=== PATIENT | female | born 1940 | race Caucasian/White ===

== ENCOUNTER 2016-04-30 11:50 | Emergency (ER) | payer OTHER ==
[~2016-04-30] VITALS: Ht 165.1 cm; Wt 70.5 kg
[~2016-04-30 11:50] MED LIST: AMLO5TAB96 PO; ECOT325T PO; SOTA80TA PO
[2016-04-30 11:52] VITALS: BP 143/66; PULSE 50; RESP 14; TEMP 97.9; O2SAT 97
[2016-04-30] MEDS ORDERED: PRAD150C PO (12:06)
[2016-04-30] MEDS ORDERED: COZA25TA PO (12:06)
[2016-04-30] MEDS ORDERED: SOTA80TA PO (12:06)
--- NOTE | 2016-04-30 12:17 | PD ---
HPI Chief Complaint: Musculoskeletal Complaint Time Seen by Provider: 12:13 Travel History International Travel<30 days: Yes Contact w/Intl Traveler<30days: Yes Name of Country Traveled to: [place] Traveled to known affect area: No History of Present Illness HPI 75-year-old female presents to the emergency department for evaluation after a trip and fall that occurred yesterday afternoon. She states her was an uneven sidewalk and she tripped and fell. She states she did hit her head, but denies loss of consciousness. She denies any headache or visual changes. No neck pain or back pain. No chest pain or abdominal pain. No vomiting. She denies any hip or pelvic pain. Patient's complaining of left ankle mild left knee pain and right knee pain. Patient with history of atrial fibrillation and TIA. She is currently on sotalol, Pradaxa, Cozaar. Patient states she has been ambulatory, but with pain. She states the pain is relieved with lying down. PFSH Past Medical History Hx Anticoagulant Therapy: Yes Cardiovascular Problems: Yes Cerebrovascular Accident: Yes Hypertension: Yes Social History Alcohol Use: No Tobacco Use: No Substance Use: No Allergies-Medications (Allergen,Severity, Reaction): Coded Allergies: No Known Allergies (Verified , 11/15/10) Reported Meds & Prescriptions Reported Meds & Active Scripts Active Reported Sotalol (Sotalol HCl) 80 Mg Tab 0.5 Tab PO BID Cozaar (Losartan Potassium) 25 Mg Tab Unknown Dose PO DAILY Pradaxa (Dabigatran) 150 Mg Cap 150 Mg PO BID Review of Systems Except as stated in HPI: all other systems reviewed are Neg Physical Exam Narrative GENERAL: Well-developed well-nourished elderly female patient, afebrile. SKIN: Warm and dry. Patient has swelling with hematoma noted over right anterior knee. She also has ecchymosis and swelling over left lateral ankle. Small ecchymosis noted to left anterior knee. HEAD: Normocephalic. Atraumatic. EYES: No scleral icterus. No injection or drainage. NECK: Supple, trachea midline. No JVD or lymphadenopathy. CARDIOVASCULAR: Regular rate and rhythm without murmurs, gallops, or rubs. Bilateral pedal pulses 2+. RESPIRATORY: Breath sounds equal bilaterally. No accessory muscle use. Lungs sounds are clear to auscultation. GASTROINTESTINAL: Abdomen soft, non-tender, nondistended. MUSCULOSKELETAL: No cyanosis. Patient has tenderness over left lateral ankle. Patient has mild tenderness over left lateral knee. Patient has tenderness over right anterior knee. BACK: Nontender without obvious deformity. No CVA tenderness. Data Data Last Documented VS Vital Signs Date Time Temp Pulse Resp B/P Pulse Ox O2 Delivery O2 Flow Rate FiO2 04/30/16 11:52 97.9 50 14 143/[address] Brain W/O Iv Contrast(Rout) (04/30/16 ) Knee, Complete (4vws) (04/30/16 ) Ankle, Complete ([id number]) (04/30/16 ) Knee, Complete (4vws) (04/30/16 ) Ct Ankle W/O Contrast (04/30/16 ) Ct Knee W/O Contrast (04/30/16 ) Acetamin-Hydrocod 325-5 Mg ([place] 5-325 (04/30/16 14:15) Splint Or Brace Apply/Monitor (04/30/16 15:10) Splint Or Brace Apply/Monitor (04/30/16 15:10) MDM Medical Decision Making Medical Screen Exam Complete: Yes Emergency Medical Condition: Yes Medical Record Reviewed: Yes Interpretation(s) CT brain - CONCLUSION: Intracranially the exam is normal. Bilateral maxillary sinus disease x-ray of the left knee - CONCLUSION: Unremarkable examination of the left knee. x-ray of the right knee - CONCLUSION: Unremarkable examination of the right knee except for marked soft tissue swelling anterior to the quadriceps tendon and patellar. x-ray of the left ankle - CONCLUSION: Question of joint effusion in the tibiotalar joint. The lateral soft tissues are swollen without evidence of fracture CT right knee - CT of the left knee CONCLUSION: Large soft tissue collection superficial to the patella consistent with a large subcutaneous hematoma. Very questionable hairline fracture involving the superolateral aspect of the patella likely no clinical significance if it is even a fracture. CT left ankle - CONCLUSION: Avulsion fracture from the tip of the lateral malleolus and the talar origin of the distal talofibular ligament. Neither fracture is significantly displaced. There is marked overlying soft-tissue swelling. Visualized tendons are intact. Differential Diagnosis Fracture versus contusion versus dislocation versus closed head injury versus intracranial abnormality Narrative Course 75-year-old female presents to the emergency department for evaluation after a trip and fall that occurred yesterday afternoon. CT of the brain is ordered and pending. X-ray of the left and right knee as well as left ankle are ordered and pending. CT of the brain shows no acute intracranial abnormality. X-ray of the left knee is unremarkable. X-ray of the right knee is unremarkable examination of the right knee except for marked soft tissue swelling anterior to the quadriceps tendon and patellar. X-ray of the left ankle question of joint effusion in the tibiotalar joint. The lateral soft tissues are swollen without evidence of fracture. CT of the left ankle and right knee are ordered and pending. CT of the right knee shows Large soft tissue collection superficial to the patella consistent with a large subcutaneous hematoma. Very questionable hairline fracture involving the superolateral aspect of the patella likely no clinical significance if it is even a fracture. CT of the left ankle shows Avulsion fracture from the tip of the lateral malleolus and the talar origin of the distal talofibular ligament. Neither fracture is significantly displaced. There is marked overlying soft-tissue swelling. Visualized tendons are intact. I discussed the case with my attending physician, Dr. Dockery, who recommends either the patient go home help her be admitted for physical therapy. The patient was placed in a knee immobilizer on the right knee had them a posterior short leg/sugar tong swelling on the left ankle. The patient states she would like to go home with a prescription for a walker. She is instructed to follow- up with orthopedist. She is instructed to use ice on the right knee for hematoma. The patient verbalizes understanding. She is return for any worsening symptoms. Diagnosis Primary Impression: Traumatic hematoma of right knee Qualified Code: S80.01XA - Traumatic hematoma of right knee, initial encounter Additional Impression: Avulsion of left ankle Qualified Code: S91.002A - Avulsion of left ankle, initial encounter Referrals: Mickey Tang MD call for appointment Patient Instructions: Ankle Fracture (ED), General Instructions, Knee Pain (ED) Departure Forms: Tests/Procedures Additional Instructions: Wear knee immobilizer and splint to left ankle. Ice for 20 minutes on, 20 minutes off. Follow-up with an orthopedist. Dr. Tang is our orthopedist on-call today. Take Lortab as directed as needed for pain. Caution this can make you drowsy do not drive after taking. Return to the emergency department for any acute worsening of symptoms. Med/Other Pt SpecificInfo: Prescription(s) given Scripts Walker Swivel Wheels/5 Ad 1 Mis Mis #1 Ea .[address] As Directed Prov:Noemy Whitehead 04/30/16 Hydrocodone-Acetaminophen (Lortab)5-325 Mg Tab1 Tab PO Q6H PRN (PAIN) #16 TAB Ref 0 Prov:Rahat Dockery MD 04/30/16 Disposition: 01 DISCHARGE HOME Condition: Stable Noemy Whitehead Apr 30, 2016 12:16
--- NOTE | 2016-04-30 13:01 | RADRPT ---
EXAM DATE/TIME: 04/30/2016 12:46 [facility] COMPARISON: No previous studies available for comparison. INDICATIONS : Fall ,cephaliga. RADIATION DOSE: 34.67 CTDIvol (mGy) MEDICAL HISTORY : Cerebrovascular disease. Cardiovascular disease Hypertension. SURGICAL HISTORY : None. ENCOUNTER: Initial ACUITY: 1 day PAIN SCALE: 5/10 LOCATION: cranial TECHNIQUE: Multiple contiguous axial images were obtained of the head. Using automated exposure control and adj ustment of the mA and/or kV according to patient size, radiation dose was kept as low as reasonably a chievable to obtain optimal diagnostic quality images. FINDINGS: CEREBRUM: The ventricles are normal for age. No evidence of midline shift, mass lesion, hemorrhage or acute in farction. No extra-axial fluid collections are seen. POSTERIOR FOSSA: The cerebellum and brainstem are intact. The 4th ventricle is midline. The cerebellopontine angle i s unremarkable. EXTRACRANIAL: The visualized portion of the orbits is intact. SKULL: The calvaria is intact. No evidence of skull fracture. Both mandibular condyles are small. Mild bila teral sinus disease CONCLUSION: Intracranially the exam is normal. Bilateral maxillary sinus disease Chano Dey MD on April 30, 2016 at 12:59 Board Certified Radiologist. This report was verified electronically.
--- NOTE | 2016-04-30 13:02 | RADRPT ---
EXAM DATE/TIME: 04/30/2016 12:35 [facility] COMPARISON: No previous studies available for comparison. INDICATIONS : Left knee pain post fall MEDICAL HISTORY : None. SURGICAL HISTORY : None. ENCOUNTER: Initial ACUITY: 1 day PAIN SCORE: 10/10 LOCATION: Left knee FINDINGS: Four view examination of the left knee demonstrates no evidence of fracture or dislocation. Bony min eralization is normal. The articular surfaces are intact. The suprapatellar soft tissues have a nor mal configuration. CONCLUSION: Unremarkable examination of the left knee. Chano Dey MD on April 30, 2016 at 13:01 Board Certified Radiologist. This report was verified electronically.
--- NOTE | 2016-04-30 13:03 | RADRPT ---
EXAM DATE/TIME: 04/30/2016 12:37 [facility] COMPARISON: No previous studies available for comparison. INDICATIONS : Right knee pain swelling and severe bruising after fall MEDICAL HISTORY : None. SURGICAL HISTORY : None. ENCOUNTER: Initial ACUITY: 1 day PAIN SCORE: 10/10 LOCATION: Right knee FINDINGS: Four view examination of the right knee demonstrates no evidence of fracture or dislocation. Bony mi neralization is normal. The articular surfaces are intact. The suprapatellar soft tissues are marke dly swollen anteriorly. I suspect a large prepatellar hematoma or bursa CONCLUSION: Unremarkable examination of the right knee except for marked soft tissue swelling anterior to the katy driceps tendon and patellar. Chano Dey MD on April 30, 2016 at 13:01 Board Certified Radiologist. This report was verified electronically.
--- NOTE | 2016-04-30 13:05 | RADRPT ---
EXAM DATE/TIME: 04/30/2016 12:32 [facility] COMPARISON: No previous studies available for comparison. INDICATIONS : Left ankle swelling and pain post fall MEDICAL HISTORY : None. SURGICAL HISTORY : None. ENCOUNTER: Initial ACUITY: 1 day PAIN SCORE: 10/10 LOCATION: Left ankle FINDINGS: Three view exam was performed of the left ankle. Maybe a small tibiotalar joint effusion The bony str uctures are in normal alignment. No evidence of fracture, dislocation, or soft tissue swelling exit marked soft tissue swelling laterally. The ankle mortise is intact. No radiopaque foreign bodies ar e seen. Bony mineralization is normal. CONCLUSION: Question of joint effusion in the tibiotalar joint. The lateral soft tissues are swollen without evid ence of fracture Chano Dey MD on April 30, 2016 at 13:03 Board Certified Radiologist. This report was verified electronically.
[2016-04-30] MEDS ORDERED: ACETAMINOPHEN/HYDROcodone 325 MG/5 MG TAB PO ONE (14:15)
--- NOTE | 2016-04-30 14:43 | RADRPT ---
EXAM DATE/TIME: 04/30/2016 13:57 [facility] COMPARISON: No previous studies available for comparison. INDICATIONS : Trauma; fall. RADIATION DOSE: 7.29 CTDIvol (mGy) MEDICAL HISTORY : Cardiovascular disease. SURGICAL HISTORY : None. ENCOUNTER: Initial ACUITY: 1 day PAIN SCALE: 6/10 LOCATION: Right knee. TECHNIQUE: Volumetric scanning of the knee was performed. Using automated exposure control and adjustment of th e mA and/or kV according to patient size, radiation dose was kept as low as reasonably achievable to obtain optimal diagnostic quality images. FINDINGS: BONES: No evidence of fracture other than a tiny hairline lucency along the right lateral edge of the patell a. Its nonarticular and nondisplaced, could even be a ununited ossification center. Alignment is wit hin normal limits. JOINTS: No evidence of joint narrowing . There is a small physiologic joint effusion. SOFT TISSUES: Anterior to the patella is a large 2.7 x 7.0 cm soft tissue density is suspected a large hematoma. A small fragment of the medial and laterally has a hematocrit level. CONCLUSION: Large soft tissue collection superficial to the patella consistent with a large subcutaneous hematoma . Very questionable hairline fracture involving the superolateral aspect of the patella likely no cli nical significance if it is even a fracture. Chano Dey MD on April 30, 2016 at 14:39 Board Certified Radiologist. This report was verified electronically.
--- NOTE | 2016-04-30 14:50 | RADRPT ---
EXAM DATE/TIME: 04/30/2016 13:57 [facility] COMPARISON: No previous studies available for comparison. INDICATIONS : Trauma; fall. Ankle pain. RADIATION DOSE: 7.29 CTDIvol (mGy) MEDICAL HISTORY : Cardiovascular disease. SURGICAL HISTORY : None. ENCOUNTER: Initial ACUITY: 1 day PAIN SCALE: 5/10 LOCATION: Left ankle. TECHNIQUE: Volumetric scanning of the ankle was performed. Using automated exposure control and adjustment of the mA and/or kV according to patient size, radiation dose was kept as low as reasonabl y achievable to obtain optimal diagnostic quality images. FINDINGS: CT scan of the left ankle demonstrates there is a tiny avulsion fracture from the lateral tip of the lateral malleolus. There is very impressive lateral soft-tissue swelling. There is a small avulsion fracture along the talar insertion of the distal talofibular ligament. The peroneal tendons are unremarkable. The posterior medial tendons are intact. The anterior tendon s are intact. The Achilles tendon is intact. What is seen of the talar dome is preserved. The tars ometatarsal joints show good alignment. CONCLUSION: Avulsion fracture from the tip of the lateral malleolus and the talar origin of the distal talofibula r ligament. Neither fracture is significantly displaced. There is marked overlying soft-tissue swel ling. Visualized tendons are intact. Chano Dey MD on April 30, 2016 at 14:45 Board Certified Radiologist. This report was verified electronically.
[2016-04-30] MEDS ORDERED: HYDR-3533 PO (15:11)
[2016-04-30] MEDS ORDERED: [UNRECOGNIZED DRUG - SUPPLY] ×2 (15:27→15:28)
== END 2016-04-30 16:27 | disposition home or self-care (01) ==
LOC: NEPE 11:50
DX: S80.01XA Contusion of right knee, initial encounter (principal); S91.002A Unspecified open wound, left ankle, initial encounter; W01.0XXA Fall on same level from slipping, tripping and stumbling without subsequent striking against object, initial encounter; I10 Essential (primary) hypertension; I48.91 Unspecified atrial fibrillation; M25.562 Pain in left knee; Z79.01 Long term (current) use of anticoagulants
CPT/HCPCS: 29515; 70450; 73564; 73610; 73700; 99284; L1830